=== PATIENT | male | born 1955 | race Caucasian/White ===

== ENCOUNTER 2016-12-03 08:26 | Outpatient (CLI) | payer OTHER ==
[2016-12-03 12:49] LABS: Cardiac Risk 3.7 (Less than 4.5)
== END 2016-12-03 08:27 | disposition home or self-care (01) ==
LOC: NAVSJIPCSP 08:26
PROVIDERS: ATTEND Internal Medicine
DX: E78.5 Hyperlipidemia, unspecified (principal)
CPT/HCPCS: 36415; 80061

== ENCOUNTER 2021-08-17 10:58 | Outpatient (CLI) | payer MEDICARE, OTHER | END 2021-08-17 10:59 | disposition home or self-care (01) | LOC: NAV RAD 10:58 | PROVIDERS: ATTEND Family Medicine | DX: M17.0 Bilateral primary osteoarthritis of knee (principal) ==

== ENCOUNTER 2022-03-24 12:40 | Emergency (ER) | payer MEDICARE ==
[2022-03-24] MEDS ORDERED: Morphine 4 MG/ML VIAL ONE (13:11)
== END 2022-03-24 15:03 | disposition home or self-care (01) ==
LOC: NAV ERS 12:40
DX: S30.0XXA Contusion of lower back and pelvis, initial encounter (principal); I10 Essential (primary) hypertension; W10.9XXA Fall (on) (from) unspecified stairs and steps, initial encounter; Z79.899 Other long term (current) drug therapy
CPT/HCPCS: 72131; 72170; 96372; J2270

== ENCOUNTER 2025-02-12 10:23 | Outpatient (CLI) | payer MEDICARE | END 2025-02-12 10:24 | disposition home or self-care (01) | LOC: NAV RAD 10:23 | PROVIDERS: ATTEND Family Medicine | DX: M15.0 Primary generalized (osteo)arthritis (principal); M47.816 Spondylosis without myelopathy or radiculopathy, lumbar region | CPT/HCPCS: 72100 ==